=== PATIENT | female | born 1995 | race African-American/Black ===

== ENCOUNTER 2021-03-17 01:30 | Emergency (ER) | payer OTHER ==
[~2021-03-17] VITALS: Ht 162.6 cm; Wt 79.9 kg
--- NOTE | 2021-03-17 03:17 | PHYS DOC ---
Past History Past Medical History: Bipolar Past Surgical History: No Surgical History Alcohol Use: None Adult General Chief Complaint Chief Complaint: DEPRESSION HPI HPI Patient is a 25-year-old female with a past medical history significant for anxiety and depression who presents to the emergency department for depression. States over the last several weeks she has just been feeling, flat, has not been enjoying anything and just feels fatigued. Denies any suicidal ideations, homicidal ideations or hallucinations. Denies any alcohol or drug use. Denies any recent travel, illnesses, fevers, chest pain, shortness of breath, abdominal pain, nausea, vomiting. States she had really talk to anybody about this and came into the emergency department just want to see if she could get some resources. Review of Systems Review of Systems Review of systems otherwise unremarkable except noted in HPI Physical Exam Physical Exam Constitutional: Well developed, well nourished, no acute distress, non-toxic appearance. [] HENT: Normocephalic, atraumatic, bilateral external ears normal, oropharynx moist, no oral exudates, nose normal. [] Eyes: conjunctiva normal, no discharge. [] Neck: Normal range of motion, no tenderness, supple, no stridor. [] Cardiovascular:Heart rate regular rhythm, no murmur [] Lungs & Thorax: Bilateral breath sounds clear to auscultation [] Abdomen: soft, no tenderness, no masses, no pulsatile masses. [] Skin: Warm, dry, no erythema, no rash. [] Back: No tenderness, no CVA tenderness. [] Extremities: No tenderness, no cyanosis, no clubbing, ROM intact, no edema. [] Neurologic: Alert and oriented X 3, normal motor function, normal sensory function, no focal deficits noted. [] Psychologic: Affect normal, judgement normal, patient does seem a little withdrawn and depressed. Denies suicidal ideation. Denies homicidal ideation. Denies hallucinations. Current Patient Data Vital Signs Vital Signs Date Time Temp Pulse Resp B/P (MAP) Pulse Ox O2 Delivery O2 Flow Rate FiO2 03/17/21 01:30 97.9 85 18 122/78 (93) 97 Room Air EKG EKG [] Radiology/Procedures Radiology/Procedures [] Heart Score C/O Chest Pain: No Risk Factors: Risk Factors: DM, Current or recent (<one month) smoker, HTN, HLP, family history of CAD, obesity. Risk Scores: Risk Factors: DM, Current or recent (<one month) smoker, HTN, HLP, family history of CAD, obesity. Course & Med Decision Making Course & Med Decision Making Patient is a 25-year-old female who presents with depression and wanting to get some resources for this. Vital signs not concerning. Physical exam noted above. PAT team evaluated and felt she was safe to go home and was probably suffering from some depression. Gave her a safety plan and resources and ways to follow- up with the guidance Center here locally. Discussed all findings with patient and she was good with discharge home with sa fety plan and resources given to her. States she felt better knowing that she was able to talk somebody and got some resources and that the emergency department is here if she needs it. Advised to follow-up with her primary care physician tomorrow as well to update on ED visit, psychiatric evaluation and safety plan and need to go to the guidance Center. Gave strict return precautions to the ED. Patient grateful, verbalized understanding and agreed with plan of discharge. [] Dragon Disclaimer Dragon Disclaimer This electronic medical record was generated, in whole or in part, using a voice recognition dictation system. Departure Departure: Impression: Primary Impression: Depression Disposition: HOME / SELF CARE / HOMELESS Condition: GOOD Referrals: PCP,UNKNOWN (PCP) Patient Instructions: Depression, Adult, Suicidal Feelings, How to Help Yourself Additional Instructions: Please read all of the attachments carefully. Please also read carefully the safety plan and resources given to you by the psychiatric emergency department liaison. As discussed please follow-up with your primary care physician as well to discuss your ED visit, diagnosis and safety plan. Please follow-up with the guidance Center as discussed. Please come back to the emergency department immediately with any new or concerning symptoms as discussed. LUTHER HAMPTON MD March 17, 2021 03:17
[2021-03-17 03:25] VITALS: BP 124/82
== END 2021-03-17 03:25 | disposition home or self-care (01) ==
LOC: ER 01:30
DX: F32.9 Major depressive disorder, single episode, unspecified (principal); F41.9 Anxiety disorder, unspecified
CPT/HCPCS: 99284-25

== ENCOUNTER 2021-09-02 09:44 | Emergency (ER) | payer OTHER ==
[~2021-09-02] VITALS: Ht 162.6 cm; Wt 78.6 kg
[2021-09-02 09:56] VITALS: BP 141/77
--- NOTE | 2021-09-02 10:08 | PHYS DOC ---
Past History Past Medical History: Bipolar Past Surgical History: No Surgical History Alcohol Use: None General Adult EDM: Chief Complaint: FOOT INJURY PAIN HPI: HPI: Patient is a 25-year-old female who presents to the emergency department today for right foot pain. She reports that most of her pain is located to the lateral aspect of her right foot. She reports that while she was working out yesterday she started experiencing right foot pain. She rates it 8 out of 10. She does not know any injury. States she did not feel a pop. She has not taken anything for treatment at home. The pain does not radiate. Patient is ambulatory with a steady gait. She denies any decreased range of motion or decreased sensation. Review of Systems: Review of Systems: 14 body systems of the review of systems have been reviewed. See HPI for per tinent positive and negative responses, otherwise all other systems are negative, nonpertinent or noncontributory Allergies: Allergies: Allergies Coded Allergies Type Severity Reaction Last Updated Verified No Known Drug Allergies 09/02/21 No Physical Exam: PE: Constitutional: Well developed, well nourished, no acute distress, non-toxic appearance. [] HENT: Normocephalic, atraumatic Eyes: PERRL, EOMI, conjunctiva normal, no discharge. [] Neck: Normal range of motion, no stridor Cardiovascular: Normal peripheral perfusion Lungs & Thorax: Normal work of breathing, no tachypnea Abdomen: Bowel sounds normal, soft, no tenderness, no masses, no pulsatile masses. [] Skin: Warm, dry, no erythema, no rash. [] Back: Normal range of motion Extremities: No tenderness, no cyanosis, no clubbing, ROM intact, no edema. Right foot: Pain with palpation to plantar fascia, no swelling, no obvious deformity, no wounds, range of motion intact, neuro intact Neurologic: Alert and oriented X 3, normal motor function, normal sensory function, no focal deficits noted. [] Psychologic: Affect normal, judgement normal, mood normal. [] Current Patient Data: Vital Signs: Vital Signs Date Time Temp Pulse Resp B/P (MAP) Pulse Ox O2 Delivery O2 Flow Rate FiO2 09/02/21 09:56 97.3 94 18 141/77 (98) 99 Room Air EKG: EKG: [] Radiology/Procedures: Radiology/Procedures: []PROCEDURE: FOOT RIGHT 3V XR FOOT_RIGHT 3 VIEWS Clinical indications: Reason: foot pain after working out / Spl. Instructions: / History: Findings: No acute fracture or dislocation or osteolytic process is evident. No plantar spur the calcaneus is seen. No periosteal reaction is evident. No radiopaque foreign body is seen. IMPRESSION: No acute osseous abnormality is evident. Electronically signed by: Chad Uribe MD (09/02/2021 10:20 AM) [id number] DICTATED AND SIGNED BY: CHAD URIBE MD DATE: 09/02/21 1018 CC: EMERGENCY,DEPARTMENT; CAMRON CHISHOLM APRN; PCP,UNKNOWN ~MTH0 0 Heart Score: C/O Chest Pain: N/A Risk Factors: Risk Factors: DM, Current or recent (<one month) smoker, HTN, HLP, family history of CAD, obesity. Risk Scores: Score 0 - 3: 2.5% MACE over next 6 weeks - Discharge Home Score 4 - 6: 20.3% MACE over next 6 weeks - Admit for Clinical Observation Score 7 - 10: 72.7% MACE over next 6 weeks - Early Invasive Strategies Course & Med Decision Making: Course & Med Decision Making Pertinent Labs and Imaging studies reviewed. (See chart for details) [] Patient presents to the emergency department with right foot pain. An x-ray was performed to rule out acute fracture and it was negative for any acute findings. On physical exam, patient had pain with palpation of plantar fascia. It likely that patient is experiencing plantar fasciitis. She was educated on plantar fasciitis as well as symptomatic care. Advised to follow-up with her primary care provider. I discussed with patient all findings and diagnostic testing as well as the need to follow-up with PCP for further evaluation and treatment or return to the ER if any new or worsening symptoms. Strict return precautions were also discussed at length. Patient voiced understanding and agreement with the plan. Patient is hemodynamically stable at the time of disposition. Sallie Disclaimer: Sallie Disclaimer: This electronic medical record was generated, in whole or in part, using a voice recognition dictation system. Departure Departure: Impression: Primary Impression: Foot pain Qualified Codes: M79.671 - Pain in right foot Disposition: HOME / SELF CARE / HOMELESS Condition: GOOD Referrals: PCP,UNKNOWN (PCP) Patient Instructions: Plantar Fasciitis Additional Instructions: You were seen in the emergency department today for right foot pain. An x-ray was performed that was negative for any acute findings. It is likely that you are experiencing plantar fasciitis. Please take anti-inflammatory medications like ibuprofen or naproxen for your pain. Icing and elevating your foot may help with swelling. You can also do special foot exercises and stretching of your plantar fasciitis. Ensure that you are wearing sturdy shoes with good arch supp ort and heel support. Follow-up with your primary care provider tomorrow regarding your ER visit. Please return to the emergency department if you have worsening of your pain, new injury, decreased range of motion or decreased sensation. EMERGENCY DEPARTMENT GENERAL DISCHARGE INSTRUCTIONS Thank you for coming to [facility] (ED) today and trusting us with you care. We trust that you had a positivie experience in our Emergency Department. If you wish to speak to the department management, you may call the director at [phone]. YOUR FOLLOW UP INSTRUCTIONS ARE FOLLOWS: 1. Do you have a private Doctor? If you do not have a private doctor, please ask for a resource list of physicians or clinics that may be able to assist you with follow up care. 2. The Emergency Physician has interpreted your x-rays. The X-Ray specialist will also review them. If there is a change in the findings, you will be notified in 48 hours when at all possible. 3. A lab test or culture has been done, your results will be reviewed and you will be notified if you need a change in treatment. ADDITIONAL INSTRUCTIONS AND INFORMATION: 1. Your care today has been supervised by a physician who is specially trained in emergency care. Many problems require more than one evaluation for a complete diagnosis and treatment. We recommend that you schedule your follow up appointment as recommended to ensure complete treatment of you illness or injury. If you are unable to obtain follow up care and continue to have a problem, or if your condition worsens, we recommend that you return to the ED. 2. We are not able to safely determine your condition over the phone nor are we able to give sound medical advice over the phone. For these safety reasons, if you call for medical advice we will ask you to come to the ED for further evaluation. 3. If you have any questions regarding these discharge instructions please call the ED at [phone]. SAFETY INFORMATION: In the interest of safety, wellness, and injury prevention; we encourage you to wear your sealbelt, if you smoke; quite smoking, and we encourage family to use a p rotective helmet for bicycling and other sporting events that present an increased risk for head injury. IF YOUR SYMPTOMS WORSEN OR NEW SYMPTOMS DEVELOP, OR YOU HAVE CONCERNS ABOUT YOUR CONDITION; OR IF YOUR CONDITION WORSENS WHILE YOU ARE WAITING FOR YOUR FOLLOW UP APPOINTMENT; EITHER CONTACT YOUR PRIMARY CARE DOCTOR, THE PHYSICIAN WHOSE NAME AND NUMBER YOU WERE GIVEN, OR RETURN TO THE ED IMMEDIATELY. CAMRON CHISHOLM APRN Sep 02, 2021 10:08
--- NOTE | 2021-09-02 10:22 | RAD ---
XR FOOT_RIGHT 3 VIEWS Clinical indications: Reason: foot pain after working out / Spl. Instructions: / History: Findings: No acute fracture or dislocation or osteolytic process is evident. No plantar spur the misha caneus is seen. No periosteal reaction is evident. No radiopaque foreign body is seen. IMPRESSION: No acute osseous abnormality is evident. Electronically signed by: Timoteo Uribe MD (09/02/2021 10:20 AM) [id number]
== END 2021-09-02 10:45 | disposition home or self-care (01) ==
LOC: ER 09:44
DX: M79.671 Pain in right foot (principal)
CPT/HCPCS: 73630; 99283-25